=== PATIENT | female | born 1980 | race African-American/Black ===

== ENCOUNTER 2022-04-16 14:26 | Emergency (ER) | payer OTHER ==
[2022-04-16 15:04] VITALS: BP 128/80; PULSE 87; RESP 18; TEMP 98.2; BMI 32.3
[2022-04-16 17:14] LABS: URINE APPEARANCE CLEAR; URINE BILIRUBIN NEGATIVE (NEGATIVE); URINE COLOR YELLOW; URINE GLUCOSE (UA) TRACE (NEGATIVE); URINE KETONE NEGATIVE (NEGATIVE); URINE LEUK ESTERASE NEGATIVE (NEGATIVE); URINE NITRITE NEGATIVE (NEGATIVE); URINE PROTEIN NEGATIVE (NEGATIVE); URINE UROBILINOGEN 0.2 mg/dL (0.2-1.0)
== END 2022-04-16 19:58 | disposition home or self-care (01) ==
LOC: JERFT 14:26
DX: O26.891 Other specified pregnancy related conditions, first trimester (principal); R10.30 Lower abdominal pain, unspecified; Z3A.10 10 weeks gestation of pregnancy
CPT/HCPCS: 76801-TC; 81003; 84703; 87086; 99284-25

== ENCOUNTER 2022-10-17 06:05 | Inpatient (IN) | payer OTHER ==
[2022-10-17 06:55] VITALS: BMI 39.5
[2022-10-17] MEDS ORDERED: PROPOFOL 20 ML ONE (07:43)
[2022-10-17] MEDS ORDERED: morphine SULFATE/PF 1 MG/2 ML (2cc Syringe - QUVA) ONE (07:43)
[2022-10-17] MEDS ORDERED: SUCCINYLCHOLINE CHLORIDE 200 MG/10 ML SYRINGE ONE (07:43)
[2022-10-17] MEDS ORDERED: ELECTROLYTE-148 SOLN 500 ML IV ONE (08:19)
[2022-10-17] MEDS ORDERED: CITRIC ACID/SODIUM CITRATE 30 ML UNIT-DOSE CUP PO ONE (08:19)
[2022-10-17] MEDS ORDERED: ELECTROLYTE-148 SOLN 1,000 ML IV SCH (08:50)
[2022-10-17] MEDS ORDERED: morphine SULFATE/PF 1 MG/2 ML (2cc Syringe - QUVA) EP ONE (09:33)
[2022-10-17] MEDS ORDERED: IBUPROFEN 800 MG/8 ML IJ IVPB PRN (09:38)
[2022-10-17] MEDS ORDERED: METHYLERGONOVINE MALEATE 0.2 MG/1 ML AMP IM PRN (09:38)
[2022-10-17] MEDS ORDERED: ACETAMINOPHEN 1000 MG/100 ML BAG IVPB PRN (09:48)
[2022-10-17] MEDS: FERROUS SO4 325 MG TABLET (FP) PO SCH ×2 (10:12→22:55)
[2022-10-17] MEDS: PRENATAL VITAMINS W/ FOLIC ACID TABLET (FP) PO SCH (10:12)
[2022-10-17] MEDS ORDERED: NIFEdipine E.R. 30 MG TABLET PO ONE (10:56)
[2022-10-17] MEDS ORDERED: OXYTOCIN 20 UNITS in 0.9% NS 20 UNIT/1,000 ML INFUS.BAG IV ONE (10:56)
[2022-10-17] MEDS: NIFEdipine E.R. 30 MG TABLET PO SCH ×2 (10:57→23:00)
[2022-10-17] MEDS: OXYTOCIN 20 UNITS in 0.9% NS 20 UNIT/1,000 ML INFUS.BAG IV SCH ×2 (10:57→18:48)
[2022-10-17] MEDS ORDERED: oxyCODONE HCL 5 MG TABLET PO PRN ×2 (21:38)
[2022-10-17] MEDS: SIMETHICONE 80 MG TAB.CHEW (FP) PO PRN (23:04)
[2022-10-18] MEDS: SIMETHICONE 80 MG TAB.CHEW (FP) PO PRN ×3 (05:19→20:06)
[2022-10-18 07:41] LABS: BASO % 0.3 % (0-2.0); EOS % 0.6 % (0-4.5); HEMATOCRIT 35.4 % (32.4-45.2); HEMOGLOBIN 11.1 GM/dL (10.7-15.3); LYMPH % 14.2 % (8-40); MCH 24.9 pg (25.7-33.7); MCHC 31.4 g/dl (32.0-36.0); MEAN CELL VOLUME 79.3 fl (80-96); MEAN PLT VOLUME 9.4 fl (7.5-11.1); MONO % 7.1 % (3.8-10.2); NEUT % 77.8 % (42.8-82.8); PLATELET COUNT 154 10^3/uL (134-434); RBC 4.46 M/mm3 (3.60-5.2); WHITE BLOOD COUNT 10.8 K/mm3 (4.0-10.0)
[2022-10-18] MEDS ORDERED: BISACODYL 10 MG SUPP.RECT RC PRN (09:38)
[2022-10-18] MEDS: FERROUS SO4 325 MG TABLET (FP) PO SCH ×2 (09:59→21:45)
[2022-10-18] MEDS: NIFEdipine E.R. 30 MG TABLET PO SCH ×2 (10:00→21:45)
[2022-10-18] MEDS: PRENATAL VITAMINS W/ FOLIC ACID TABLET (FP) PO SCH (10:00)
[2022-10-18] MEDS: ACETAMINOPHEN 325 MG TABLET (FP) PO PRN (17:21)
[2022-10-18] MEDS: SENNOSIDES/DOCUSATE COMBO (SENNA PLUS) TABLET (UD) PO PRN (21:45)
[2022-10-19] MEDS: SIMETHICONE 80 MG TAB.CHEW (FP) PO PRN ×2 (01:11→09:26)
[2022-10-19] MEDS: IBUPROFEN 600 MG TABLET (FP) PO PRN ×2 (01:11→09:26)
[2022-10-19] MEDS: FERROUS SO4 325 MG TABLET (FP) PO SCH ×2 (09:25→21:23)
[2022-10-19] MEDS: NIFEdipine E.R. 30 MG TABLET PO SCH ×2 (09:26→21:23)
[2022-10-19] MEDS: PRENATAL VITAMINS W/ FOLIC ACID TABLET (FP) PO SCH (09:26)
[2022-10-19] MEDS: SENNOSIDES/DOCUSATE COMBO (SENNA PLUS) TABLET (UD) PO PRN (21:23)
[2022-10-20] MEDS: ACETAMINOPHEN 325 MG TABLET (FP) PO PRN ×2 (01:07→20:12)
[2022-10-20] MEDS: SIMETHICONE 80 MG TAB.CHEW (FP) PO PRN ×2 (01:08→20:12)
[2022-10-20] MEDS: FERROUS SO4 325 MG TABLET (FP) PO SCH ×2 (09:38→22:37)
[2022-10-20] MEDS: IBUPROFEN 600 MG TABLET (FP) PO PRN (09:38)
[2022-10-20] MEDS: PRENATAL VITAMINS W/ FOLIC ACID TABLET (FP) PO SCH (09:38)
[2022-10-20] MEDS: NIFEdipine E.R. 30 MG TABLET PO SCH ×2 (09:38→22:02)
[2022-10-20] MEDS: SENNOSIDES/DOCUSATE COMBO (SENNA PLUS) TABLET (UD) PO PRN (20:12)
[2022-10-21] MEDS: IBUPROFEN 600 MG TABLET (FP) PO PRN (09:43)
[2022-10-21] MEDS: PRENATAL VITAMINS W/ FOLIC ACID TABLET (FP) PO SCH (09:43)
[2022-10-21] MEDS: FERROUS SO4 325 MG TABLET (FP) PO SCH (09:43)
[2022-10-21] MEDS: NIFEdipine E.R. 30 MG TABLET PO SCH (09:43)
[2022-10-21 10:20] VITALS: BP 127/81; PULSE 106; RESP 16; TEMP 97.8
== END 2022-10-21 15:25 | disposition home or self-care (01) | DRG 786 ==
LOC: JLDR 06:05 → J3W 11:12
PROVIDERS: ADMIT Obstetrics & Gynecology; ATTEND Obstetrics & Gynecology
PROC: 10D00Z1 Extraction of Products of Conception, Low, Open Approach (ICD-10-PCS; principal; 2022-10-17)
DX: O40.3XX0 Polyhydramnios, third trimester, not applicable or unspecified (principal); O34.32 Maternal care for cervical incompetence, second trimester; O42.912 Preterm premature rupture of membranes, unspecified as to length of time between rupture and onset of labor, second trimester; O24.424 Gestational diabetes mellitus in childbirth, insulin controlled; O32.8XX0 Maternal care for other malpresentation of fetus, not applicable or unspecified; O16.4 Unspecified maternal hypertension, complicating childbirth; Z98.891 History of uterine scar from previous surgery; Z3A.36 36 weeks gestation of pregnancy; Z37.0 Single live birth
CPT/HCPCS: 36415; 82962; 84443; 85025; 88307-TC; 94010